=== PATIENT | female | born 1990 | race Two or more races ===

== ENCOUNTER 2016-07-25 05:28 | Emergency (ER) | payer MEDICAID, OTHER ==
[~2016-07-25] VITALS: Ht 167.6 cm; Wt 45.4 kg
[2016-07-25] MEDS ORDERED: ASPIRIN 81 MG TAB.CHEW ONE (06:16)
[2016-07-25] MEDS ORDERED: ASPIRIN 81 MG TAB.CHEW PO ONE (06:30)
[2016-07-25 06:50] LABS: BASOPHILS % (AUTO) 0.8 % (0.0-2.0); DIFF TOTAL % 100 %; HEMATOCRIT 40 % (33-45); HEMOGLOBIN 13.6 g/dL (11.5-14.8); LYMPHOCYTES # (AUTO) 1.2 /CMM (0.8-4.8); MEAN CORPUSCULAR HEMOGLOBIN 31 PG (26.0-33.0); MEAN CORPUSCULAR HGB CONC 34 g/dl (31.0-36.0); MEAN CORPUSCULAR VOLUME 90 fL (82-100); MONOCYTES # (AUTO) 0.4 /CMM (0.1-1.30); MONOCYTES % (AUTO) 8.5 % (2.0-12.0); NEUTROPHILS # (AUTO) 3.1 /CMM (1.8-8.9); NEUTROPHILS % (AUTO) 64.7 % (43.0-81.0); PLATELET COUNT (AUTO) 193 /CMM (150-450); RED BLOOD CELL COUNT(AUTO) 4.46 MIL/uL (4.0-5.2); WHITE BLOOD COUNT (AUTO) 4.8 K/uL (4.3-11.0)
[2016-07-25 07:01] LABS: ANION GAP 13 (5-14); CALCIUM, SERUM 9.2 mg/dL (8.5-10.1); CARBON DIOXIDE 26 mmol/L (21-32); CHLORIDE 103 mmol/L (98-107); CREATININE 0.7 mg/dL (0.6-1.3); GFR 101 mL/min (>60); GLUCOSE 93 mg/dL (74-106); POTASSIUM 3.7 mmol/L (3.5-5.1); SODIUM SERUM 138 mmol/L (136-145); UREA NITROGEN, BLOOD 18 mg/dL (7-18)
[2016-07-25 07:09] LABS: TROPONIN I < 0.017 ng/mL (0.00-0.056)
[2016-07-25 08:10] VITALS: BP 137/69
== END 2016-07-25 08:11 | disposition home or self-care (01) ==
LOC: ER 05:30
DX: R07.89 Other chest pain (principal); F15.10 Other stimulant abuse, uncomplicated; R64 Cachexia; F17.210 Nicotine dependence, cigarettes, uncomplicated
CPT/HCPCS: 36415; 71010; 80048; 84484; 84703; 85025; 85378; 93005; 99285; A4606; Z7610

== ENCOUNTER 2017-05-04 13:39 | Emergency (ER) | payer MEDICAID ==
[~2017-05-04] VITALS: Ht 157.5 cm; Wt 45.4 kg
--- NOTE | 2017-05-04 13:48 | NUR ---
CALLED TO TRIAGE, NO ANSWER
[2017-05-04 13:59] VITALS: BP 117/77
[2017-05-04] MEDS ORDERED: ACETAMINOPHEN ES 500 MG TABLET ONE (14:45)
[2017-05-04] MEDS ORDERED: ACETAMINOPHEN 325 MG TABLET PO ONE (15:00)
== END 2017-05-04 14:50 | disposition home or self-care (01) ==
LOC: ER 13:45
DX: J11.1 Influenza due to unidentified influenza virus with other respiratory manifestations (principal); F17.200 Nicotine dependence, unspecified, uncomplicated